=== PATIENT | male | born 1995 ===

== ENCOUNTER 2018-06-28 14:34 | Observation (INO) | payer OTHER ==
[2018-06-28] MEDS ORDERED: Clindamycin 600mg/50ml D5W 600 MG/50 ML VIAL IVPB STA (15:16)
[2018-06-28] MEDS ORDERED: Tdap Vaccine 0.5 ml Vial (10-64 yrs) IM ONE ×2 (15:20→15:25)
[2018-06-28 15:28] LABS: BASO # 0.1 K/uL (0.0-0.2); BASO % 0.5 % (0.0-2.0); EOS # 0.1 K/uL (0.0-0.7); EOS % 0.5 % (0.0-4.0); HEMOGLOBIN 14.6 g/dL (12.0-18.0); LYMPH # 1.8 K/uL (1.0-4.3); LYMPH % 14.4 % (20.0-40.0); MEAN CELL VOLUME 88.1 fl (80.0-94.0); MEAN CORPUSCULAR HEMOGLOBIN 29.1 pg (27.0-31.0); MEAN PLATELET VOLUME 9.8 fl (7.2-11.7); MONO # 0.7 K/uL (0.0-0.8); MONO % 5.6 % (0.0-10.0); NEUT # 10.1 K/uL (1.8-7.0); NRBC % 0.1 % (0.0-0.0); RBC 5.01 Mil/uL (4.40-5.90); RED CELL DISTRIBUTION WIDTH 13.3 % (11.5-14.5); WHITE BLOOD COUNT 12.7 K/uL (4.8-10.8)
--- NOTE | 2018-06-28 15:40 | ED PDOC ---
Upper Extremity Pain/Injury Time Seen by Provider: 06/28/18 14:48 Chief Complaint (Nursing): Finger,Hand,&Wrist Chief Complaint (Provider): Hand injury History Per: Patient History/Exam Limitations: no limitations Onset/Duration Of Symptoms: Days (x2) Current Symptoms Are (Timing): Still Present Additional Complaint(s): 23 year old, right hand dominant, male presents to the ED complaining of a left hand injury, yesterday 12pm. Patient reports he was moving a sofa and accidentally punctured his left thumb from a staple that was sticking out of the sofa. He reports having mild pain to the area yesterday with increased pain and swelling to the left thumb this morning. He states having red streaking up his arm. Denies fever or chills. Patient moves furniture for a living. Tetanus vaccination not UTD. PMD: none Past Medical History Reviewed: Historical Data, Nursing Documentation, Vital Signs Vital Signs: Last Vital Signs Temp 97.9 F 06/28/18 14:38 Pulse 71 06/28/18 14:38 Resp 17 06/28/18 14:38 BP 113/71 06/28/18 14:38 Pulse Ox 100 06/28/18 14:38 - Medical History PMH: No Chronic Diseases - Surgical History Surgical History: No Surg Hx - Family History Family History: States: Unknown Family Hx - Immunization History Hx Tetanus Toxoid Vaccination: Yes (>10yrs) - Allergies Allergies/Adverse Reactions: Allergies Allergy/AdvReac Type Severity Reaction Status Date / Time No Known Allergies Allergy Verified 06/28/18 14:40 Review of Systems ROS Statement: Except As Marked, All Systems Reviewed And Found Negative Constitutional: Negative for: Fever, Chills Musculoskeletal: Positive for: Other (Left thumb pain and injury) Physical Exam - Reviewed Nursing Documentation Reviewed: Yes Vital Signs Reviewed: Yes - Physical Exam Appears: Positive for: Non-toxic, No Acute Distress Head Exam: Positive for: ATRAUMATIC, NORMOCEPHALIC Skin: Positive for: Normal Color, Warm, Dry Eye Exam: Positive for: Normal appearance Neck: Positive for: Normal Cardiovascular/Chest: Positive for: Regular Rate, Rhythm Respiratory: Positive for: Normal Breath Sounds Extremity: Positive for: Other (Left first digit: (+) Diffuse swelling and tenderness to the volar aspect of distal thumb with scabbed puncture wound noted. Able to bend at IP with mild pain. (+) Lymphangitic streaking from the base of his thumb extending up his forearm to his left axilla. (-) axillary l ymphadenopathy) Neurologic/Psych: Positive for: Alert, Oriented. Negative for: Motor/Sensory Deficits - Laboratory Results Result Diagrams: 06/28/18 15:17 06/28/18 15:17 - ECG O2 Sat by Pulse Oximetry: 100 (RA) Pulse Ox Interpretation: Normal Medical Decision Making Medical Decision Making: Initial Plan: --CMP --CBC --Tetanus 0.5mL IM --Clindamycin 600mg in 50mL IV --Blood culture --Left thumb X-ray Case d/w Dr. Hair hand surgeon production foreman, agrees with admission, requesting surgical appliance fitter be notified. Case d/w hospitalist Dr. Dean, accepts admission to his service. Surg resident notified, will consult. --- Scribe Attestation: Documented by [place] acting as a scribe for Marta RUFF. Provider Scribe Attestation: All medical record entries made by the Scribe were at my direction and personally dictated by me. I have reviewed the chart and agree that the record accurately reflects my personal performance of the history, physical exam, medical decision making, and the department course for this patient. I have also personally directed, reviewed, and agree with the discharge instructions and d isposition. Disposition - Clinical Impression Clinical Impression: Lymphangitis, Infected puncture wound of finger - Patient ED Disposition Is Patient to be Admitted: Yes Discussed With : Randee Hair Doctor Will See Patient In The: Hospital Counseled Patient/Family Regarding: Studies Performed, Diagnosis - Disposition Disposition Time: 16:24 Condition: STABLE Forms: Hum (Hebrew)
[2018-06-28 15:46] LABS: ALB/GLOB RATIO 1.3 (1.0-2.1); ALT/SGPT 22 U/L (21-72); AST/SGOT 29 U/L (17-59); BLOOD UREA NITROGEN 16 mg/dl (9-20); CALCIUM 9.9 mg/dL (8.4-10.2); GFR NON-AFRICAN AMERICAN > 60
--- NOTE | 2018-06-28 16:17 | RAD ---
PROCEDURE: Left Hand Radiographs. HISTORY: trauma COMPARISON: None. FINDINGS: BONES: Normal. No fracture. JOINTS: Normal. No osteoarthritic changes. SOFT TISSUES: Normal. OTHER FINDINGS: None. IMPRESSION: Normal left hand radiographs.
--- NOTE | 2018-06-28 16:18 | CP.PCM.HP ---
<Eloina Galicia - Last Filed: 06/28/18 17:29> History of Present Illness - History of Present Illness History of Present Illness: 23 yr old M presents to ED with complaint of worsening left hand pain radiating up his arm x 1 day. Denies any significant PMHx. Reports he accidentally injured his left thumb with staple sticking out of a sofa he was moving, staple went into thumb. Patient states he took 2 tablets of tetracycline PO he had (1 tab at 7am, other tab at 12pm). Denies fever, chills, SOB. Reports he cannot move his left arm today due to the pain and swelling and noticed red line going up his arm. No discharge. Does not recall when he had his last tetanus vaccine, was over 10 yrs ago. PMD: none PMHx: none SurgHx: denies FMHx: noncontributory SocHx: denies Etoh/tobacco or drugs Medications: none Allergies: NKDA ED course: BP 113/71 mmHg, HR 71, Resp 17, SpO2 100% on room air -CBC: WBC 12.7, CMP wnl -Left thumb xray: normal xray -Hand surgeon consulted: Dr. Hair , agrees with admission -ED tx: Tetanus vaccine, Clindamycin 600mg IV once Present on Admission - Present on Admission Any Indicators Present on Admission: No History of DVT/PE: No History of Uncontrolled Diabetes: No Urinary Catheter: No Decubitus Ulcer Present: No History Surgical Site Infection Following: None Review of Systems - Constitutional Constitutional: absent: Chills, Fever, Weakness - EENT Ears: absent: Dizziness - Cardiovascular Cardiovascular: absent: Chest Pain, Dyspnea - Respiratory Respiratory: absent: Cough - Gastrointestinal Gastrointestinal: absent: Nausea, Vomiting - Genitourinary Genitourinary: absent: Dysuria - Musculoskeletal Musculoskeletal: Radiating Pain into Limb (left arm pain from thumb radiating up to shoulder s/p puncture wound of thumb) - Integumentary Integumentary: Wounds (left thumb puncture wound) - Neurological Neurological: absent: Confusion, Headaches - Endocrine Endocrine: absent: Fatigue, Palpitations - Hematologic/Lymphatic Hematologic: Other (red line going up left arm). absent: Easy Bleeding, Easy Bruising Past Patient History - Infectious Disease Hx of Infectious Diseases: None - Past Social History Smoking Status: Current Some Days Smoker - PSYCHIATRIC Hx Substance Use: No - SURGICAL HISTORY Hx Surgeries: No - ANESTHESIA Hx Anesthesia: No Meds Allergies/Adverse Reactions: Allergies Allergy/AdvReac Type Severity Reaction Status Date / Time No Known Allergies Allergy Verified 06/28/18 14:40 Physical Exam - Constitutional Appears: No Acute Distress - Head Exam Head Exam: ATRAUMATIC, NORMOCEPHALIC - Eye Exam Eye Exam: EOMI - ENT Exam ENT Exam: Mucous Membranes Moist - Neck Exam Neck exam: Positive for: Full Rom - Respiratory Exam Respiratory Exam: NORMAL BREATHING PATTERN - Cardiovascular Exam Cardiovascular Exam: +S1, +S2. absent: Gallop - GI/Abdominal Exam GI & Abdominal Exam: Normal Bowel Sounds, Soft - Extremities Exam Extremities exam: Positive for: tenderness (left thumb swelling and tenderness to palpation, red streak from distal left arm up to shoulder, limited ROM of left arm due to pain) - Neurological Exam Neurological exam: Alert, CN II-XII Intact, Oriented x3 - Psychiatric Exam Psychiatric exam: Normal Affect, Normal Mood - Skin Skin Exam: Dry, Warm Results - Vital Signs Recent Vital Signs: Last Vital Signs Temp 97.9 F 06/28/18 14:38 Pulse 71 06/28/18 14:38 Resp 17 06/28/18 14:38 BP 113/71 06/28/18 14:38 Pulse Ox 100 06/28/18 16:16 - Labs Result Diagrams: 06/28/18 15:17 06/28/18 15:17 Labs: Laboratory Results - last 24 hr 06/28/18 06/28/18 15:17 15:17 WBC 12.7 H RBC 5.01 Hgb 14.6 Hct 44.1 MCV 88.1 MCH 29.1 MCHC 33.0 RDW 13.3 Plt Count 198 MPV 9.8 Neut % (Auto) 79.0 H Lymph % (Auto) 14.4 L [place] % (Auto) 5.6 Eos % (Auto) 0.5 Baso % (Auto) 0.5 Neut # (Auto) 10.1 H Lymph # (Auto) 1.8 [place] # (Auto) 0.7 Eos # (Auto) 0.1 Baso # (Auto) 0.1 Sodium 139 Potassium 4.5 Chloride 100 Carbon Dioxide 26 Anion Gap 18 BUN 16 Creatinine 0.8 Est GFR ( Amer) > 60 Est GFR (Non-Af Amer) > 60 Random Glucose 120 H Calcium 9.9 Total Bilirubin 0.6 AST 29 ALT 22 Alkaline Phosphatase 112 Total Protein 8.7 H Albumin 5.0 Globulin 3.7 Albumin/Globulin Ratio 1.3 Assessment & Plan - Assessment and Plan (Free Text) Assessment: 23 yr old M admitted for lymphangitis secondary to left thumb puncture wound. No significant PMHx. 1. Lymphangitis of left arm -acute -WBC 12.7, severe pain, unable to move arm -Left thumb xray: normal xray -Hand surgeon on consult: Dr. Hair -Surgery consulted -admit to med surg -s/p ED tx with Tetanus vaccine, Clindamycin 600mg IV once -Clindamycin 600mg IV Q8 (Day 1), tylenol PRN pain, -f/u CBC, BCx 2. DVT prophylaxis -SCD's for now -Lovenox 30mg SC QD start 06/29/17 - Date & Time Date: 06/28/18 Time: 16:18 <Anthony Ha D - Last Filed: 06/30/18 01:28> Results - Vital Signs Recent Vital Signs: Last Vital Signs Temp 97.3 F L 06/30/18 00:10 Pulse 61 06/30/18 00:10 Resp 19 06/30/18 00:10 BP 97/56 L 06/30/18 00:10 Pulse Ox 99 06/30/18 00:10 - Labs Result Diagrams: 06/29/18 06:00 06/29/18 06:00 Labs: Laboratory Results - last 24 hr 06/29/18 06/29/18 06/29/18 06:00 06:00 06:00 WBC 6.4 RBC 4.95 Hgb 14.5 Hct 42.5 MCV 85.9 D MCH 29.3 MCHC 34.1 RDW 13.6 Plt Count 194 MPV 9.7 Neut % (Auto) 63.5 Lymph % (Auto) 25.5 [place]alfa % (Auto) 8.5 Eos % (Auto) 1.8 Baso % (Auto) 0.7 Neut # (Auto) 4.1 Lymph # (Auto) 1.6 [place]alfa # (Auto) 0.5 Eos # (Auto) 0.1 Baso # (Auto) 0.0 PT 12.2 INR 1.1 APTT 28.8 Sodium 142 Potassium 4.5 Chloride 102 Carbon Dioxide 28 Anion Gap 17 BUN 20 Creatinine 0.9 Est GFR ( Amer) > 60 Est GFR (Non-Af Amer) > 60 Random Glucose 121 H Calcium 9.7 Attending/Attestation - Attestation I have personally seen and examined this patient.: Yes I have fully participated in the care of the patient.: Yes I have reviewed all pertinent clinical information: Yes Notes (Text): 06/30/18 01:28 Patient seen and examined with resident. Case discussed and agreed with assessment and plan of management.
[2018-06-28] MEDS ORDERED: Clindamycin in NS 300 MG/50 ML BAG IVPB SCH (17:00)
[2018-06-28] MEDS ORDERED: Influenza Vaccine 60 mcg/0.5 mL SYR (4YR UP) IM ONE (18:27)
[2018-06-28] MEDS: Clindamycin 600mg/50ml D5W 600 MG/50 ML VIAL IVPB SCH (23:00)
--- NOTE | 2018-06-28 23:21 | CP.PCM.CON ---
History of Present Illness - History of Present Illness History of Present Illness: Hand Surgery Consult Re: L thumb puncture wound HPI: 23M presented to ED complaining of worsening left hand pain that is radiating up his arm for 1 day. Yesterday, the pt injured his left thumb on a staple sticking out of a sofa he was moving. Reports he took 2 tablets of tetracycline PO he had. Today he has limited ROM of the L arm due to pain and swelling. He also noticed a red line going up his arm. No discharge. Received tetanus vaccine in ED. Denies fever, chills, chest pain, SOB, abd pain, N/V/C/D. PMH: Denies PSH: Denies SH: No tobacco, occasional EtOH, no drug use FH: Noncontributory All: NKDA Meds: Denies Review of Systems - Review of Systems All systems: reviewed and no additional remarkable complaints except (as per HPI) Past Patient History - Infectious Disease Hx of Infectious Diseases: None - Past Medical History & Family History Past Medical History?: No - Past Social History Smoking Status: Never Smoked - MUSCULOSKELETAL/RHEUMATOLOGICAL Hx Falls: No - PSYCHIATRIC Hx Substance Use: No - SURGICAL HISTORY Hx Surgeries: No - ANESTHESIA Hx Anesthesia: No Meds Allergies/Adverse Reactions: Allergies Allergy/AdvReac Type Severity Reaction Status Date / Time No Known Allergies Allergy Verified 06/28/18 14:40 - Medications Medications: Current Medications Acetaminophen (Tylenol 325mg Tab) 650 mg PO Q6 PRN PRN Reason: Pain, moderate (4-7) Enoxaparin Sodium (Lovenox) 40 mg SC DAILY [facility]; Protocol Ampicillin Sodium/Sulbactam (Sodium 3 gm/ Sodium Chloride) 100 mls @ 100 mls/hr IVPB Q6 [facility]; Protocol Last Admin: 06/28/18 21:23 Dose: 100 mls/hr Clindamycin Phosphate (Cleocin) 600 mg in 50 mls @ 50 mls/hr IVPB Q8 [facility]; Protocol Ketorolac Tromethamine (Toradol) 30 mg IVP Q6 PRN PRN Reason: Pain, severe (8-10) Last Admin: 06/28/18 17:34 Dose: 30 mg Physical Exam - Constitutional Appears: Non-toxic, No Acute Distress - Head Exam Head Exam: ATRAUMATIC, NORMOCEPHALIC - Eye Exam Eye Exam: EOMI. absent: Scleral icterus - ENT Exam ENT Exam: Mucous Membranes Moist - Neck Exam Neck exam: Positive for: Full Rom. Negative for: Lymphadenopathy - Respiratory Exam Respiratory Exam: NORMAL BREATHING PATTERN. absent: Accessory Muscle Use, Chest Wall Tenderness, Respiratory Distress - Cardiovascular Exam Cardiovascular Exam: RRR, +S1, +S2 - GI/Abdominal Exam GI & Abdominal Exam: Soft. absent: Tenderness - Rectal Exam Rectal Exam: Deferred - Extremities Exam Extremities exam: Positive for: normal capillary refill. Negative for: calf tenderness, pedal edema Additional comments: LUE with erythema and swelling of L hand with TTP over area. No fluctuance, no drainage. Punctate wound in thumbprint. Streaking up into axilla. Streak is TTP. No axillary lympadenopathy. Hand ROM limited due to pain but has good ROM and sensation - Back Exam Back exam: absent: CVA tenderness (L), CVA tenderness (R) - Neurological Exam Neurological exam: Alert, Oriented x3 - Skin Skin Exam: Dry, Warm Results - Vital Signs Recent Vital Signs: Last Vital Signs Temp 98.1 F 06/28/18 17:12 Pulse 65 06/28/18 18:04 Resp 18 06/28/18 18:04 BP 126/76 06/28/18 17:12 Pulse Ox 100 06/28/18 17:12 - Labs Result Diagrams: 06/28/18 15:17 06/28/18 15:17 Labs: Laboratory Results - last 24 hr 06/28/18 06/28/18 15:17 15:17 WBC 12.7 H RBC 5.01 Hgb 14.6 Hct 44.1 MCV 88.1 MCH 29.1 MCHC 33.0 RDW 13.3 Plt Count 198 MPV 9.8 Neut % (Auto) 79.0 H Lymph % (Auto) 14.4 L [place] % (Auto) 5.6 Eos % (Auto) 0.5 Baso % (Auto) 0.5 Neut # (Auto) 10.1 H Lymph # (Auto) 1.8 [place] # (Auto) 0.7 Eos # (Auto) 0.1 Baso # (Auto) 0.1 Sodium 139 Potassium 4.5 Chloride 100 Carbon Dioxide 26 Anion Gap 18 BUN 16 Creatinine 0.8 Est GFR ( Amer) > 60 Est GFR (Non-Af Amer) > 60 Random Glucose 120 H Calcium 9.9 Total Bilirubin 0.6 AST 29 ALT 22 Alkaline Phosphatase 112 Total Protein 8.7 H Albumin 5.0 Globulin 3.7 Albumin/Globulin Ratio 1.3 - Imaging and Cardiology Hand x-ray Status: Image reviewed by me Assessment & Plan - Assessment and Plan (Free Text) Assessment: 23M with L thumb puncture wound and cellulitis Plan: NPO p MN for possible procedure. Continue Abx F/U Cx Warm Compresses to L hand Monitor for increasing erythema. D/W Dr. Reginaldo Eli PGY4
[2018-06-29] MEDS: Clindamycin 600mg/50ml D5W 600 MG/50 ML VIAL IVPB SCH ×3 (00:39→18:00)
[2018-06-29 06:30] LABS: BASO % 0.7 % (0.0-2.0); EOS # 0.1 K/uL (0.0-0.7); EOS % 1.8 % (0.0-4.0); HEMOGLOBIN 14.5 g/dL (12.0-18.0); LYMPH # 1.6 K/uL (1.0-4.3); LYMPH % 25.5 % (20.0-40.0); MEAN CELL VOLUME 85.9 fl (80.0-94.0); MEAN CORPUSCULAR HEMOGLOBIN 29.3 pg (27.0-31.0); MEAN CORPUSCULAR HGB CONC 34.1 g/dL (33.0-37.0); MEAN PLATELET VOLUME 9.7 fl (7.2-11.7); MONO # 0.5 K/uL (0.0-0.8); MONO % 8.5 % (0.0-10.0); NEUT # 4.1 K/uL (1.8-7.0); NEUT % 63.5 % (50.0-75.0); NRBC % 0.1 % (0.0-0.0); RBC 4.95 Mil/uL (4.40-5.90); RED CELL DISTRIBUTION WIDTH 13.6 % (11.5-14.5); WHITE BLOOD COUNT 6.4 K/uL (4.8-10.8)
[2018-06-29 06:45] LABS: BLOOD UREA NITROGEN 20 mg/dl (9-20); CALCIUM 9.7 mg/dL (8.4-10.2); GFR NON-AFRICAN AMERICAN > 60
[2018-06-29 07:06] LABS: INR 1.1; PROTHROMBIN TIME 12.2 Seconds (9.8-13.1)
[2018-06-29 07:09] LABS: PARTIAL THROMBOPLASTIN TIME 28.8 Seconds (25.6-37.1)
--- NOTE | 2018-06-29 07:55 | CP.PCM.PN ---
Subjective - Date & Time of Evaluation Date of Evaluation: 06/29/18 Time of Evaluation: 07:53 - Subjective Subjective: SURGERY NOTE FOR DR. AGUIRRE 23M seen and examined at bedside. Patient symptoms improving. States erythema from the night prior is resolving in the arm. States pain is localized to the distal thumb. Denies any fevers or chills. Objective - Vital Signs/Intake and Output Vital Signs (last 24 hours): Temp Pulse Resp BP Pulse Ox 98 F 78 18 119/64 98 06/29/18 00:25 06/29/18 00:25 06/29/18 00:25 06/29/18 00:25 06/29/18 00:25 - Medications Medications: Current Medications Acetaminophen (Tylenol 325mg Tab) 650 mg PO Q6 PRN PRN Reason: Pain, moderate (4-7) Enoxaparin Sodium (Lovenox) 40 mg SC DAILY [facility]; Protocol Ampicillin Sodium/Sulbactam (Sodium 3 gm/ Sodium Chloride) 100 mls @ 100 mls/hr IVPB Q6 [facility]; Protocol Last Admin: 06/29/18 04:42 Dose: 100 mls/hr Clindamycin Phosphate (Cleocin) 600 mg in 50 mls @ 50 mls/hr IVPB Q8 [facility]; Protocol Last Admin: 06/29/18 00:39 Dose: 50 mls/hr Ketorolac Tromethamine (Toradol) 30 mg IVP Q6 PRN PRN Reason: Pain, severe (8-10) Last Admin: 06/29/18 02:02 Dose: 30 mg - Labs Labs: 06/29/18 06:00 06/29/18 06:00 PT 12.2 Seconds (9.8-13.1) 06/29/18 06:00 INR 1.1 06/29/18 06:00 APTT 28.8 Seconds (25.6-37.1) 06/29/18 06:00 - Constitutional Appears: Non-toxic, No Acute Distress - Respiratory Exam Respiratory Exam: Clear to Ausculation Bilateral, NORMAL BREATHING PATTERN - Cardiovascular Exam Cardiovascular Exam: REGULAR RHYTHM, +S1, +S2 - GI/Abdominal Exam GI & Abdominal Exam: Soft. absent: Distended, Firm, Guarding, Rigid, Tenderness, Rebound - Extremities Exam Additional comments: left thumb swelling and redness, tenderness to palpation, denies any loss of sensation or motor function - Neurological Exam Neurological Exam: Alert, Awake Assessment and Plan - Assessment and Plan (Free Text) Assessment: 23M with distal thumb felon Plan: - antibiotics - IVF - Will require incision and drainage Further recs discuss with Dr. Reginaldo Holman, PGY3
[2018-06-29] MEDS: Enoxaparin 40 mg Syringe SC SCH (08:34)
--- NOTE | 2018-06-29 08:52 | CP.PCM.PN ---
<Dunia Aquino - Last Filed: 06/29/18 11:17> Subjective - Date & Time of Evaluation Date of Evaluation: 06/29/18 Time of Evaluation: 09:40 - Subjective Subjective: Pt seen and examined at bedside this am; reports feeling ok. Still has pain/swelling in L thumb, and states L arm pain improving. No specific complaints, denies chest pain, SOB, fevers. Objective - Vital Signs/Intake and Output Vital Signs (last 24 hours): Temp Pulse Resp BP Pulse Ox 97.5 F L 60 20 111/65 99 06/29/18 08:23 06/29/18 08:23 06/29/18 08:23 06/29/18 08:23 06/29/18 08:23 - Medications Medications: Current Medications Acetaminophen (Tylenol 325mg Tab) 650 mg PO Q6 PRN PRN Reason: Pain, moderate (4-7) Enoxaparin Sodium (Lovenox) 40 mg SC DAILY [facility]; Protocol Last Admin: 06/29/18 08:34 Dose: 40 mg Ampicillin Sodium/Sulbactam (Sodium 3 gm/ Sodium Chloride) 100 mls @ 100 mls/hr IVPB Q6 [facility]; Protocol Last Admin: 06/29/18 04:42 Dose: 100 mls/hr Clindamycin Phosphate (Cleocin) 600 mg in 50 mls @ 50 mls/hr IVPB Q8 [facility]; Protocol Last Admin: 06/29/18 08:33 Dose: 50 mls/hr Ketorolac Tromethamine (Toradol) 30 mg IVP Q6 PRN PRN Reason: Pain, severe (8-10) Last Admin: 06/29/18 02:02 Dose: 30 mg - Labs Labs: 06/29/18 06:00 06/29/18 06:00 PT 12.2 Seconds (9.8-13.1) 06/29/18 06:00 INR 1.1 06/29/18 06:00 APTT 28.8 Seconds (25.6-37.1) 06/29/18 06:00 - Constitutional Appears: No Acute Distress - Head Exam Head Exam: NORMAL INSPECTION - Eye Exam Eye Exam: Normal appearance - Neck Exam Neck Exam: Full ROM - Respiratory Exam Respiratory Exam: Clear to Ausculation Bilateral, NORMAL BREATHING PATTERN - Cardiovascular Exam Cardiovascular Exam: REGULAR RHYTHM, +S1, +S2 - GI/Abdominal Exam GI & Abdominal Exam: Soft. absent: Tenderness - Extremities Exam Extremities Exam: absent: Calf Tenderness, Pedal Edema Additional comments: LEFT thumb: + erythema and swelling, tender to touch; proximally traveling erythema improved as per pt - Neurological Exam Neurological Exam: Alert, Oriented x3 - Skin Skin Exam: Warm Assessment and Plan - Assessment and Plan (Free Text) Assessment: 23 yo M with no known med hx, admitted for cellulitis/lymphangitis following puncture wound from old staple while moving furniture. Found to have elevated WBC on admission; resolved this am. Overnight, pain in L arm improved, able to move more. Left hand X-ray - normal. Started on abx (clinda, unasyn). Evaluated by hand surgery - possible I&D. Received tetanus vaccine in ED. Plan: Lymphangitis/Cellulitis, left upper extremity - Hand surgeon on consult: Dr. Hair; input appreciated, pending recs re: I&D - Clindamycin 600mg IV Q8 (Day 2); Unasyn 3gm IV Q6 (day 2) - Pain control w/ toradol 30 mg IVP Q6 PRN - F/u blood cx Diet - Regular; NPO if going for procedure DVT prophylaxis - Lovenox 30mg SC QD <Stephanie Merrill - Last Filed: 06/29/18 16:08> Objective - Vital Signs/Intake and Output Vital Signs (last 24 hours): Temp Pulse Resp BP Pulse Ox 97.5 F L 60 20 111/65 99 06/29/18 09:00 06/29/18 09:00 06/29/18 09:00 06/29/18 09:00 06/29/18 09:00 - Medications Medications: Current Medications Acetaminophen (Tylenol 325mg Tab) 650 mg PO Q6 PRN PRN Reason: Pain, moderate (4-7) Enoxaparin Sodium (Lovenox) 40 mg SC DAILY [facility]; Protocol Last Admin: 06/29/18 08:34 Dose: 40 mg Ampicillin Sodium/Sulbactam (Sodium 3 gm/ Sodium Chloride) 100 mls @ 100 mls/hr IVPB Q6 [facility]IG[facility]; Protocol Last Admin: 06/29/18 04:42 Dose: 100 mls/hr Clindamycin Phosphate (Cleocin) 600 mg in 50 mls @ 50 mls/hr IVPB Q8 [facility]IG[facility]; Protocol Last Admin: 06/29/18 08:33 Dose: 50 mls/hr Ketorolac Tromethamine (Toradol) 30 mg IVP Q6 PRN PRN Reason: Pain, severe (8-10) Last Admin: 06/29/18 11:34 Dose: 30 mg - Labs Labs: 06/29/18 06:00 06/29/18 06:00 PT 12.2 Seconds (9.8-13.1) 06/29/18 06:00 INR 1.1 06/29/18 06:00 APTT 28.8 Seconds (25.6-37.1) 06/29/18 06:00 Attending/Attestation - Attestation I have personally seen and examined this patient.: Yes I have fully participated in the care of the patient.: Yes I have reviewed all pertinent clinical information, including history, physical exam and plan: Yes
[2018-06-29] MEDS ORDERED: Clindamycin 600mg/50ml D5W 600 MG/50 ML VIAL IVPB SCH (09:00)
--- NOTE | 2018-06-29 19:48 | CP.PCM.PCO ---
Physician Communication Note - Physician Communication Note Physician Communication Note: Patient with cellulitis to left thumb Assessment & Plan - Assessment and Plan (Free Text) Assessment: PE: no streaking noted, cellulitis to distal phalanx and distal aspect of proximal phalanx. There is a callus from puncture to the radial aspect. There is no pus, no fluctuance. There is tenderness to the volar side of the thumb. 23 year old with cellulitis, possible felon formation. Plan: Warm soaks with bedadine and water for 10 min every 2-3 hrs while awake. Continue antitbiotics. If the cellulitis resolves but the volar tip is still sensitive will plan to do bedsite I&D of felon. At this time there is no fullness or abscess noted yet.
[2018-06-29] MEDS ORDERED: Povidone Iodine Topical 10% Sol TOP ONE (20:55)
[2018-06-30] MEDS: Clindamycin 600mg/50ml D5W 600 MG/50 ML VIAL IVPB SCH ×2 (01:55→10:00)
[2018-06-30 06:30] LABS: HEMOGLOBIN 14.1 g/dL (12.0-18.0); MEAN CELL VOLUME 87.8 fl (80.0-94.0); MEAN CORPUSCULAR HEMOGLOBIN 29.4 pg (27.0-31.0); MEAN CORPUSCULAR HGB CONC 33.4 g/dL (33.0-37.0); RBC 4.8 Mil/uL (4.40-5.90); RED CELL DISTRIBUTION WIDTH 13.5 % (11.5-14.5); WHITE BLOOD COUNT 6.9 K/uL (4.8-10.8)
[2018-06-30 06:41] LABS: BLOOD UREA NITROGEN 20 mg/dl (9-20); CALCIUM 9.3 mg/dL (8.4-10.2); GFR NON-AFRICAN AMERICAN > 60
[2018-06-30 08:31] VITALS: RESP 20
[2018-06-30] MEDS ORDERED: Lidocaine 2% Inj (20ml) ONE (09:38)
[2018-06-30] MEDS ORDERED: Oxycodone/Acetaminophen 5/325 mg Tab PO PRN (10:24)
--- NOTE | 2018-06-30 10:55 | CP.PCM.PN ---
<Surajrolyluz marinaDunia - Last Filed: 06/30/18 10:52> Subjective - Date & Time of Evaluation Date of Evaluation: 06/30/18 Time of Evaluation: 10:00 - Subjective Subjective: Patient seen/examined at bedside. No acute events overnight, no distress. Reports improvement of left arm pain, streak resolved. Thumb still has pain Objective - Vital Signs/Intake and Output Vital Signs (last 24 hours): Temp Pulse Resp BP Pulse Ox 97.5 F L 66 20 121/57 L 99 06/30/18 08:31 06/30/18 08:31 06/30/18 08:31 06/30/18 08:31 06/30/18 08:31 - Medications Medications: Current Medications Acetaminophen (Tylenol 325mg Tab) 650 mg PO Q6 PRN PRN Reason: Pain, moderate (4-7) Enoxaparin Sodium (Lovenox) 40 mg SC DAILY DIGNA; Protocol Last Admin: 06/29/18 08:34 Dose: 40 mg Ampicillin Sodium/Sulbactam (Sodium 3 gm/ Sodium Chloride) 100 mls @ 100 mls/hr IVPB Q6 DIGNA; Protocol Last Admin: 06/30/18 10:01 Dose: 100 mls/hr Clindamycin Phosphate (Cleocin) 600 mg in 50 mls @ 50 mls/hr IVPB Q8 DIGNA; Protocol Last Admin: 06/30/18 10:00 Dose: 50 mls/hr Ketorolac Tromethamine (Toradol) 30 mg IVP Q6 PRN PRN Reason: Pain, severe (8-10) Last Admin: 06/30/18 06:45 Dose: 30 mg Oxycodone/Acetaminophen (Percocet 5/325 Mg Tab) 1 tab PO Q6 PRN PRN Reason: Pain, moderate (4-7) Stop: 07/03/18 10:25 - Labs Labs: 06/30/18 06:15 06/30/18 06:15 PT 12.2 Seconds (9.8-13.1) 06/29/18 06:00 INR 1.1 06/29/18 06:00 APTT 28.8 Seconds (25.6-37.1) 06/29/18 06:00 - Constitutional Appears: Non-toxic, No Acute Distress - Head Exam Head Exam: NORMAL INSPECTION - Eye Exam Eye Exam: Normal appearance - ENT Exam ENT Exam: Mucous Membranes Moist - Neck Exam Neck Exam: Full ROM - Respiratory Exam Respiratory Exam: Clear to Ausculation Bilateral, NORMAL BREATHING PATTERN - Cardiovascular Exam Cardiovascular Exam: REGULAR RHYTHM, +S1, +S2 - GI/Abdominal Exam GI & Abdominal Exam: Soft. absent: Tenderness - Extremities Exam Additional comments: LEFT thumb: + erythema and swelling, tender to touch; proximally traveling erythema streak much improved Assessment and Plan - Assessment and Plan (Free Text) Assessment: 23 yo M with no known med hx, admitted for cellulitis/lymphangitis following puncture wound from old staple while moving furniture. Found to have elevated WBC on admission; now resolved. Pain in L arm improved, able to move more. Left hand X-ray - normal. Started on abx (clinda, unasyn). Evaluated by hand surgery -originally thought I&D, now recs warm soaks with bedadine and water for 10 min every 2-3 hrs while awake. Continue antibiotics. If the cellulitis resolves but the volar tip is still sensitive will plan to do bedside I&D of felon. Received tetanus vaccine in ED. Plan: Cellulitis, left upper extremity - Hand surgeon on consult: Dr. Hair; input appreciated, now recs warm soaks wi th bedadine and water for 10 min every 2-3 hrs while awake. Continue antitbiotics; possible bedside I&D if cellulitis resolves but the volar tip is still sensitive - Clindamycin 600mg IV Q8 (Day 3); Unasyn 3gm IV Q6 (day 3) - Pain control w/ toradol 30 mg IVP Q6 PRN - F/u blood cx Diet - Regular DVT prophylaxis - Lovenox 30mg SC QD <Stephanie Merrill - Last Filed: 06/30/18 17:00> Objective - Vital Signs/Intake and Output Vital Signs (last 24 hours): Temp Pulse Resp BP Pulse Ox 98.2 F 67 20 122/61 96 06/30/18 16:02 06/30/18 16:02 06/30/18 16:02 06/30/18 16:02 06/30/18 16:02 - Medications Medications: Current Medications Acetaminophen (Tylenol 325mg Tab) 650 mg PO Q6 PRN PRN Reason: Pain, moderate (4-7) Enoxaparin Sodium (Lovenox) 40 mg SC DAILY DIGNA; Protocol Last Admin: 06/30/18 15:34 Dose: 40 mg Ampicillin Sodium/Sulbactam (Sodium 3 gm/ Sodium Chloride) 100 mls @ 100 mls/hr IVPB Q6 DIGNA; Protocol Last Admin: 06/30/18 15:16 Dose: 100 mls/hr Clindamycin Phosphate (Cleocin) 600 mg in 50 mls @ 50 mls/hr IVPB Q8 DIGNA; Protocol Last Admin: 06/30/18 10:00 Dose: 50 mls/hr Ketorolac Tromethamine (Toradol) 30 mg IVP Q6 PRN PRN Reason: Pain, severe (8-10) Last Admin: 06/30/18 06:45 Dose: 30 mg Oxycodone/Acetaminophen (Percocet 5/325 Mg Tab) 1 tab PO Q6 PRN PRN Reason: Pain, moderate (4-7) Stop: 07/03/18 10:25 Last Admin: 06/30/18 11:12 Dose: 1 tab - Labs Labs: 06/30/18 06:15 06/30/18 06:15 PT 12.2 Seconds (9.8-13.1) 06/29/18 06:00 INR 1.1 06/29/18 06:00 APTT 28.8 Seconds (25.6-37.1) 06/29/18 06:00 Attending/Attestation - Attestation I have personally seen and examined this patient.: Yes I have fully participated in the care of the patient.: Yes I have reviewed all pertinent clinical information, including history, physical exam and plan: Yes Notes (Text): Left Thumb Felon with Lymphangitis s/p Incision and drainage - I&D done by Hand Surgery team at bedside - cleared by Surgery for discharge home - received IV Unasyn and Clinda - pain and swelling improved - cont Hand soaks with Betadine - Pt is afebrile, no leukocytosis - will d/c pt home on PO Clinda - Pt to ff up at Dr Pradhan office in 1 wk
--- NOTE | 2018-06-30 12:02 | CP.PCM.DIS ---
<Dunia Aquino - Last Filed: 06/30/18 12:39> Provider - Provider Date of Admission: 06/28/18 15:59 Attending physician: Anthony Ha MD Primary care physician: none Consults: 06/29/18 08:27 Physician Consult Routine Comment: left hand cellulitis and left arm lymphangitis Consulting Provider: Randee Hair V Consulting Physician: Randee Hair V Reason for Consult: s/p puncture wound Time Spent in preparation of Discharge (in minutes): 20 Diagnosis - Discharge Diagnosis (1) Infected puncture wound of finger Status: Acute (2) Lymphangitis Status: Resolved Hospital Course - Lab Results Lab Results: Micro Results 06/28/18 15:17 Blood-Venous Blood Culture - Preliminary NO GROWTH AFTER 24 HOURS 06/28/18 15:17 Blood-Venous Blood Culture - Preliminary NO GROWTH AFTER 24 HOURS Most Recent Lab Values WBC 6.9 K/uL (4.8-10.8) 06/30/18 06:15 RBC 4.80 Mil/uL (4.40-5.90) 06/30/18 06:15 Hgb 14.1 g/dL (12.0-18.0) 06/30/18 06:15 Hct 42.2 % (35.0-51.0) 06/30/18 06:15 MCV 87.8 fl (80.0-94.0) 06/30/18 06:15 MCH 29.4 pg (27.0-31.0) 06/30/18 06:15 MCHC 33.4 g/dL (33.0-37.0) 06/30/18 06:15 RDW 13.5 % (11.5-14.5) 06/30/18 06:15 Plt Count 187 K/uL (130-400) 06/30/18 06:15 MPV 9.7 fl (7.2-11.7) 06/29/18 06:00 Neut % (Auto) 63.5 % (50.0-75.0) 06/29/18 06:00 Lymph % (Auto) 25.5 % (20.0-40.0) 06/29/18 06:00 [place] % (Auto) 8.5 % (0.0-10.0) 06/29/18 06:00 Eos % (Auto) 1.8 % (0.0-4.0) 06/29/18 06:00 Baso % (Auto) 0.7 % (0.0-2.0) 06/29/18 06:00 Neut # (Auto) 4.1 K/uL (1.8-7.0) 06/29/18 06:00 Lymph # (Auto) 1.6 K/uL (1.0-4.3) 06/29/18 06:00 [place] # (Auto) 0.5 K/uL (0.0-0.8) 06/29/18 06:00 Eos # (Auto) 0.1 K/uL (0.0-0.7) 06/29/18 06:00 Baso # (Auto) 0.0 K/uL (0.0-0.2) 06/29/18 06:00 PT 12.2 Seconds (9.8-13.1) 06/29/18 06:00 INR 1.1 06/29/18 06:00 APTT 28.8 Seconds (25.6-37.1) 06/29/18 06:00 Sodium 139 mmol/l (132-148) 06/30/18 06:15 Potassium 4.4 MMOL/L (3.6-5.0) 06/30/18 06:15 Chloride 105 mmol/L (98-107) 06/30/18 06:15 Carbon Dioxide 26 mmol/L (22-30) 06/30/18 06:15 Anion Gap 12 (10-20) 06/30/18 06:15 BUN 20 mg/dl (9-20) 06/30/18 06:15 Creatinine 0.8 mg/dl (0.8-1.5) 06/30/18 06:15 Est GFR ( Amer) > 60 06/30/18 06:15 Est GFR (Non-Af Amer) > 60 06/30/18 06:15 Random Glucose 118 mg/dL (75-110) H 06/30/18 06:15 Calcium 9.3 mg/dL (8.4-10.2) 06/30/18 06:15 Total Bilirubin 0.6 mg/dl (0.2-1.3) 06/28/18 15:17 AST 29 U/L (17-59) 06/28/18 15:17 ALT 22 U/L (21-72) 06/28/18 15:17 Alkaline Phosphatase 112 U/L (38-126) 06/28/18 15:17 Total Protein 8.7 G/DL (6.3-8.2) H 06/28/18 15:17 Albumin 5.0 g/dL (3.5-5.0) 06/28/18 15:17 Globulin 3.7 gm/dL (2.2-3.9) 06/28/18 15:17 Albumin/Globulin Ratio 1.3 (1.0-2.1) 06/28/18 15:17 - Hospital Course Hospital Course: 23 yo M with no known med hx, admitted for cellulitis/lymphangitis following puncture wound from old staple while moving furniture. Received tetanus vaccine in ED. Found to have elevated WBC on admission; now resolved. Pain in L arm improved, able to move. Left hand X-ray - normal. Started on abx (clinda, unasyn). Evaluated by hand surgery -recs warm soaks with bedadine and water for 10 min every 2-3 hrs while awake; did I&D of felon. Patient seen/examined at bedside. No acute events overnight, no distress. Reports improvement of left arm pain, streak resolved. Thumb still has some pain. Stable for discharge; PO clindamycin 300 mg Q6hrs x 7 days, as well as florastor 250 mg BID x1 week; instructed to f/u with Dr. Hair in clinic. Discharge Exam - Head Exam Head Exam: NORMAL INSPECTION - Eye Exam Eye Exam: Normal appearance - ENT Exam ENT Exam: Mucous Membranes Moist - Respiratory Exam Respiratory Exam: Clear to PA & Lateral, NORMAL BREATHING PATTERN - Cardiovascular Exam Cardiovascular Exam: REGULAR RHYTHM, +S1, +S2 - Extremities Exam Additional comments: LEFT thumb: + erythema and swelling, tender to touch; proximally traveling erythema streak much improved - Neurological Exam Neurological exam: Alert, Oriented x3 - Psychiatric Exam Psychiatric exam: Normal Mood - Skin Additional comments: as above Discharge Plan - Discharge Medications Prescriptions: Clindamycin [Cleocin] 300 mg PO Q6 #28 cap Saccharomyces Boulardi [Florastor] 250 mg PO Q12 #14 cap - Follow Up Plan Condition: STABLE Disposition: HOME/ ROUTINE Instructions: Cellulitis (Skin Infection), Adult (DC) Additional Instructions: continue saline and betadine por 10 minutos cada 4 horas; mezclar 30ml de salina y 10ml de betadine. mohinder pastillas de antibiotic clindamycin 4 veces en un josefina (cada 6 horas) por 1 semana mohinder pastilla de probiotic 2 veces en un josefina por 1 semana mohinder tylenol y ibuprofena por dolor (instrucciones en package) hacer isa con Dr. Hair ([facility]) dentro de 1 semana y cody con [facility] doctor prim[facility] en 1 semana regresa a la emergencia si dolor es peor o tiene mas hinchado o piel denise Referrals: [facility]. [facility] [Outside] Randee Hair MD [Staff Provider] - <Stephanie Merrill - Last Filed: 06/30/18 17:01> Provider - Provider Date of Admission: 06/28/18 15:59 Attending physician: Anthony Ha MD Consults: 06/29/18 08:27 Physician Consult Routine Comment: left hand cellulitis and left arm lymphangitis Consulting Provider: Randee Hair V Consulting Physician: Randee Hair V Reason for Consult: s/p puncture wound Hospital Course - Lab Results Lab Results: Micro Results 06/28/18 15:17 Blood-Venous Blood Culture - Preliminary NO GROWTH AFTER 48 HOURS 06/28/18 15:17 Blood-Venous Blood Culture - Preliminary NO GROWTH AFTER 48 HOURS Most Recent Lab Values WBC 6.9 K/uL (4.8-10.8) 06/30/18 06:15 RBC 4.80 Mil/uL (4.40-5.90) 06/30/18 06:15 Hgb 14.1 g/dL (12.0-18.0) 06/30/18 06:15 Hct 42.2 % (35.0-51.0) 06/30/18 06:15 MCV 87.8 fl (80.0-94.0) 06/30/18 06:15 MCH 29.4 pg (27.0-31.0) 06/30/18 06:15 MCHC 33.4 g/dL (33.0-37.0) 06/30/18 06:15 RDW 13.5 % (11.5-14.5) 06/30/18 06:15 Plt Count 187 K/uL (130-400) 06/30/18 06:15 MPV 9.7 fl (7.2-11.7) 06/29/18 06:00 Neut % (Auto) 63.5 % (50.0-75.0) 06/29/18 06:00 Lymph % (Auto) 25.5 % (20.0-40.0) 06/29/18 06:00 [place] % (Auto) 8.5 % (0.0-10.0) 06/29/18 06:00 Eos % (Auto) 1.8 % (0.0-4.0) 06/29/18 06:00 Baso % (Auto) 0.7 % (0.0-2.0) 06/29/18 06:00 Neut # (Auto) 4.1 K/uL (1.8-7.0) 06/29/18 06:00 Lymph # (Auto) 1.6 K/uL (1.0-4.3) 06/29/18 06:00 [place] # (Auto) 0.5 K/uL (0.0-0.8) 06/29/18 06:00 Eos # (Auto) 0.1 K/uL (0.0-0.7) 06/29/18 06:00 Baso # (Auto) 0.0 K/uL (0.0-0.2) 06/29/18 06:00 PT 12.2 Seconds (9.8-13.1) 06/29/18 06:00 INR 1.1 06/29/18 06:00 APTT 28.8 Seconds (25.6-37.1) 06/29/18 06:00 Sodium 139 mmol/l (132-148) 06/30/18 06:15 Potassium 4.4 MMOL/L (3.6-5.0) 06/30/18 06:15 Chloride 105 mmol/L (98-107) 06/30/18 06:15 Carbon Dioxide 26 mmol/L (22-30) 06/30/18 06:15 Anion Gap 12 (10-20) 06/30/18 06:15 BUN 20 mg/dl (9-20) 06/30/18 06:15 Creatinine 0.8 mg/dl (0.8-1.5) 06/30/18 06:15 Est GFR ( Amer) > 60 06/30/18 06:15 Est GFR (Non-Af Amer) > 60 06/30/18 06:15 Random Glucose 118 mg/dL (75-110) H 06/30/18 06:15 Calcium 9.3 mg/dL (8.4-10.2) 06/30/18 06:15 Total Bilirubin 0.6 mg/dl (0.2-1.3) 06/28/18 15:17 AST 29 U/L (17-59) 06/28/18 15:17 ALT 22 U/L (21-72) 06/28/18 15:17 Alkaline Phosphatase 112 U/L (38-126) 06/28/18 15:17 Total Protein 8.7 G/DL (6.3-8.2) H 06/28/18 15:17 Albumin 5.0 g/dL (3.5-5.0) 06/28/18 15:17 Globulin 3.7 gm/dL (2.2-3.9) 06/28/18 15:17 Albumin/Globulin Ratio 1.3 (1.0-2.1) 06/28/18 15:17 Attending/Attestation - Attestation I have personally seen and examined this patient.: Yes I have fully participated in the care of the patient.: Yes I have reviewed all pertinent clinical information, including history, physical exam and plan: Yes Notes (Text): Dx: Left Thumb Felon with Lymphangitis s/p Incision and drainage - I&D done by Hand Surgery team at bedside - cleared by Surgery for discharge home - received IV Unasyn and Clinda - pain and swelling improved - cont Hand soaks with Betadine - Pt is afebrile, no leukocytosis - will d/c pt home on PO Clinda - Pt to ff up at Dr Pradhan office in 1 wk
--- NOTE | 2018-06-30 13:45 | CP.PCM.PN ---
Subjective - Date & Time of Evaluation Date of Evaluation: 06/30/18 Time of Evaluation: 11:00 - Subjective Subjective: PROCEDURE NOTE PRE-OP DIAGNOSIS: Felon of left thumb POST-OP DIAGNOSIS: Same PROCEDURE: incision and drainage of abscess PROCEDURE: A timeout protocol was performed prior to initiating the procedure. The area was prepared and draped in the usual, sterile manner. The site was anesthetized with 2% lidocaine without epinephrine. A linear incision along the lateral aspect of thumb was made and about 1cc of purulent material was expressed. The abscess was explored thoroughly and sequestered pockets were opened. Bleeding was minimal. Patient tolerated procedure well. Followup: The patient tolerated the procedure well without complications. Standard post-procedure care is explained and return precautions are given. Patient to be d/c on oral antibiotics. Recommend continuing betadine soaks. Follow up with Dr. Hair. Objective - Vital Signs/Intake and Output Vital Signs (last 24 hours): Temp Pulse Resp BP Pulse Ox 97.5 F L 66 20 121/57 L 99 06/30/18 09:00 06/30/18 09:00 06/30/18 09:00 06/30/18 09:00 06/30/18 09:00 - Medications Medications: Current Medications Acetaminophen (Tylenol 325mg Tab) 650 mg PO Q6 PRN PRN Reason: Pain, moderate (4-7) Enoxaparin Sodium (Lovenox) 40 mg SC DAILY DIGNA; Protocol Last Admin: 06/29/18 08:34 Dose: 40 mg Ampicillin Sodium/Sulbactam (Sodium 3 gm/ Sodium Chloride) 100 mls @ 100 mls/hr IVPB Q6 DIGNA; Protocol Last Admin: 06/30/18 10:01 Dose: 100 mls/hr Clindamycin Phosphate (Cleocin) 600 mg in 50 mls @ 50 mls/hr IVPB Q8 DIGNA; Protocol Last Admin: 06/30/18 10:00 Dose: 50 mls/hr Ketorolac Tromethamine (Toradol) 30 mg IVP Q6 PRN PRN Reason: Pain, severe (8-10) Last Admin: 06/30/18 06:45 Dose: 30 mg Oxycodone/Acetaminophen (Percocet 5/325 Mg Tab) 1 tab PO Q6 PRN PRN Reason: Pain, moderate (4-7) Stop: 07/03/18 10:25 Last Admin: 06/30/18 11:12 Dose: 1 tab - Labs Labs: 06/30/18 06:15 06/30/18 06:15 PT 12.2 Seconds (9.8-13.1) 06/29/18 06:00 INR 1.1 06/29/18 06:00 APTT 28.8 Seconds (25.6-37.1) 06/29/18 06:00 Assessment and Plan - Assessment and Plan (Free Text) Assessment: 23M with left thumb felon Plan: PO ABx Betadine soaks F/u With Dr. Reginaldo Moncada PGY3
[2018-06-30] MEDS: Enoxaparin 40 mg Syringe SC SCH (15:34)
[2018-06-30 16:03] VITALS: BP 122/61; PULSE 67; TEMP 98.2; O2SAT 96
== END 2018-06-30 18:00 | disposition home or self-care (01) ==
LOC: H.ER 14:34 → H.ERHOLD 15:59 → H.MEDSURG1 16:58
DX: L03.022 Acute lymphangitis of left finger (principal); S61.032A Puncture wound without foreign body of left thumb without damage to nail, initial encounter; Z23 Encounter for immunization; F17.200 Nicotine dependence, unspecified, uncomplicated; L03.012 Cellulitis of left finger; W26.8XXA Contact with other sharp object(s), not elsewhere classified, initial encounter
CPT/HCPCS: 26010; 36415; 73140; 80048; 80053; 85025; 85027; 85610; 85730; 87040; 87070; 90471; 90674; 90715; 99284; G0008; G0378; J0295; J1650; J1885